=== PATIENT | female | born 1975 | race African-American/Black ===

== ENCOUNTER 2017-09-14 12:25 | Emergency (ER) | payer SELFPAY ==
[2017-09-14 13:21] LABS: ALT (SGPT) 32 U/L (8-55); AST (SGOT) 43 U/L (5-34); Albumin 4.1 g/dL (3.5-5.0); Alkaline Phosphatase 67 U/L (40-150); Anion Gap 14 mmol/L (10-20); BUN (Urea Nitrogen) 8 mg/dL (7.0-18.7); Bilirubin, Total 0.3 mg/dL (0.2-1.2); Calc. Creatinine Clearance 0 mL/min (70-130); Calcium 9.7 mg/dL (7.8-10.44); Carbon Dioxide 21 mmol/L (22-29); Chloride 105 mmol/L (98-107); Estimated GFR-MDRD Greater than 90; Globulin 3.4 g/dL (2.4-3.5); Glucose 155 mg/dL (70-105); Lipase 62 U/L (8-78); Potassium 3.2 mmol/L (3.5-5.1); Protein, Total 7.5 g/dL (6.0-8.3); Sodium 137 mmol/L (136-145)
[2017-09-14 13:49] LABS: #Basophils 0.1 thou/uL (0.0-0.2); #Eosinphils 0.1 thou/uL (0.0-0.7); #Lymphocytes 2.5 thou/uL (1.20-3.40); #Monocytes 0.5 thou/uL (0.11-0.59); #Neutrophils 4.8 thou/uL (1.40-6.50); %Basophils 1.9 % (0.0-1.0); %Eosinophils 0.8 % (0.0-10.0); %Lymphocytes 31.6 % (21.0-51.0); %Neutrophils 59.6 % (42.0-75.0); Hemoglobin 13.5 g/dL (12.0-16.0); Mean Corpuscular Hemoglobin 29.9 pg (27.0-31.0); Mean Corpuscular Volume 93.6 fl (81.0-99.0); Mean Platelet Volume 7.4 fL (7.4-10.4); Platelet Count 311 thou/uL (130-400); RBC Distribution Width 12.3 % (11.5-14.5); Red Blood Cell (RBC) Count 4.49 mill/uL (4.20-5.40)
[2017-09-14 14:41] LABS: Bilirubin Negative (Negative); Blood, Urine Negative (Negative); Clarity CLEAR (Clear); Glucose, Urine (Dipstick) Negative (Negative); Leukocyte Negative (Negative); Nitrite Negative (Negative); Pregnancy Test - Urine (BHCG) Negative (Negative); Protein, Urine (Dipstick) 300 mg/dL (Neg-Trace); Specific Gravity, Urine 1.023 (1.002-1.036); Urobilinogen 0.2 mg/dL (0.2-1.0); pH, Urine 6.5 (5.0-9.0)
[2017-09-14 14:42] LABS: Pregu Control Background? CLEAR/WHITE (CLR/WHITE); Pregu Control Bar Appear? YES (CONTROL BAR); Specific Gravity 1.023 (1.002-1.036)
[2017-09-14 14:43] LABS: Bacteria/HPF None Seen HPF (None Seen); Hyaline Casts/LPF 4-6 HYALINE CAST LPF (0-3 Hyaline); Pathc Cast-AUWi Flag 0.43 (0-2.49); Squamous Epithelial 0-3 HPF (0-3); WBC/HPF 0-3 HPF (0-3)
[2017-09-14 15:01] LABS: RBC/HPF 0-3 HPF (0-3); Renal Epithelial None Seen HPF (0-3); Transitional Epithelial NONE SEEN HPF (0-3)
--- NOTE | 2017-09-14 15:02 | RAD ---
CHEST 1 VIEW: Date: 09/14/17 HISTORY: Dyspnea. Fever. COMPARISON: 07/31/16. FINDINGS: Cardiac silhouette is magnified by projection. Pulmonary vasculature is unremarkable. Mediastinum is midline. No lobar consolidation or evidence of pneumothorax. java j2ee lead leads overlie the chest. IMPRESSION: No active cardiopulmonary abnormalities are demonstrated. POS: [facility]
[2017-09-14] MEDS ORDERED: Sodium Chloride 0.9% 0 ML ONE (15:15)
[2017-09-14] MEDS ORDERED: Promethazine HCl 25 MG/ML VIAL ONE (15:15)
[2017-09-14] MEDS ORDERED: Ketorolac Tromethamine 30 MG/ML VIAL ONE (16:09)
== END 2017-09-14 17:20 | disposition home or self-care (01) ==
LOC: ERS 12:25
DX: A08.4 Viral intestinal infection, unspecified (principal); E78.5 Hyperlipidemia, unspecified; I10 Essential (primary) hypertension; F41.9 Anxiety disorder, unspecified; F20.9 Schizophrenia, unspecified; F17.210 Nicotine dependence, cigarettes, uncomplicated
CPT/HCPCS: 36415; 71045; 80053; 81003; 81015; 81025; 83690; 85025; 96361; 96372; 96374; 96375; J1885; J2550; J7050

== ENCOUNTER 2018-02-07 09:35 | Inpatient (IN) | payer SELFPAY ==
[2018-02-07 10:09] LABS: #Basophils 0.2 thou/uL (0.0-0.2); #Eosinphils 0.1 thou/uL (0.0-0.7); #Lymphocytes 3.8 thou/uL (1.20-3.40); #Neutrophils 3.5 thou/uL (1.40-6.50); %Basophils 1.9 % (0.0-1.0); %Eosinophils 1.7 % (0.0-10.0); %Lymphocytes 44.3 % (21.0-51.0); %Monocytes 11.3 % (0.0-10.0); %Neutrophils 40.8 % (42.0-75.0); Hemoglobin 16.6 g/dL (12.0-16.0); Mean Corpuscular HGB CONC 32.2 g/dL (32.0-36.0); Mean Corpuscular Hemoglobin 30.5 pg (27.0-31.0); Mean Corpuscular Volume 94.8 fL (78.0-98.0); Mean Platelet Volume 8.1 fL (7.4-10.4); Platelet Count 326 thou/uL (130-400); RBC Distribution Width 12.2 % (11.5-14.5); Red Blood Cell (RBC) Count 5.43 mill/uL (4.20-5.40); White Blood Cell (WBC) Count 8.6 thou/uL (4.8-10.8)
[2018-02-07 10:10] LABS: Bilirubin Moderate (Negative); Blood, Urine Negative (Negative); Clarity CLOUDY (Clear); Glucose, Urine (Dipstick) Negative (Negative); Leukocyte Trace (Negative); Nitrite Negative (Negative); Protein, Urine (Dipstick) 300 mg/dL (Neg-Trace); Specific Gravity, Urine 1.031 (1.002-1.036)
[2018-02-07 10:14] LABS: Pathc Cast-AUWi Flag 16.13 (0-2.49)
[2018-02-07 10:16] LABS: BHCG - Serum Negative (NEGATIVE); Pregs Control Background? CLEAR/WHITE (CLR/WHITE); Pregs Control Bar Appear? YES (CONTROL BAR)
[2018-02-07 10:21] LABS: Bacteria/HPF 1+ HPF (None Seen)
[2018-02-07 10:22] LABS: Hyaline Casts/LPF 4-6 HYALINE CAST LPF (0-3 Hyaline); Manual Microscopic Reviewed? No Path Casts Seen; Renal Epithelial None Seen HPF (0-3); Transitional Epithelial NONE SEEN HPF (0-3)
[2018-02-07 10:24] LABS: ALT (SGPT) 50 U/L (8-55); AST (SGOT) 47 U/L (5-34); Albumin 4.1 g/dL (3.5-5.0); Alkaline Phosphatase 65 U/L (40-150); Anion Gap 15 mmol/L (10-20); BUN (Urea Nitrogen) 19 mg/dL (7.0-18.7); Bilirubin, Total 0.7 mg/dL (0.2-1.2); Calc. Creatinine Clearance 0 mL/min (70-130); Calcium 9.5 mg/dL (7.8-10.44); Carbon Dioxide 21 mmol/L (22-29); Chloride 102 mmol/L (98-107); Estimated GFR-MDRD 90; Globulin 4.1 g/dL (2.4-3.5); Glucose 118 mg/dL (70-105); Lipase 17 U/L (8-78); Potassium 3.4 mmol/L (3.5-5.1); Protein, Total 8.2 g/dL (6.0-8.3); Sodium 135 mmol/L (136-145)
--- NOTE | 2018-02-07 11:34 | ULT ---
TRANSABDOMINAL PELVIC ULTRASOUND WITH DOPPLER: DATE: 02/07/18. PROVIDED CLINICAL HISTORY: Pelvic pain and bleeding. FINDINGS: The uterus measures about 7.1 x 4.2 x 5 cm and demonstrates a normal sonographic appearance. Endomet rial thickness is about 4 mm. Right and left ovaries appear sonographically unremarkable. Dominant follicle involving left ovary m easures about 2.1 cm. Color Doppler and spectral analysis of the ovarian waveforms reveals normal fl ow bilaterally. There is no evidence for significant free pelvic fluid. IMPRESSION: No evidence for an acute process. POS: [facility]
[2018-02-07] MEDS ORDERED: hydrALAZINE 20 MG/ML VIAL ONE (12:25)
[2018-02-07] MEDS ORDERED: Promethazine HCl 25 MG/ML VIAL ONE (13:36)
--- NOTE | 2018-02-07 13:50 | CT ---
CT OF THE ABDOMEN AND PELVIS WITH IV CONTRAST: DATE: 02/07/18. Provided CLINICAL HISTORY: Vaginal bleeding, weakness, and abdominal pain. FINDINGS: No comparisons. The visualized lung bases are free of significant opacity. The liver, spleen, pancreas, kidneys, and adrenal glands demonstrate an unremarkable CT appearance. There is no bowel dilatation, inflammatory fat stranding, free fluid, or free air apparent. The uter ine myometrium appears diffusely hypodense. There is increased enhancement of the uterine endometriu m region. There are several small foci of gas present within the urinary bladder. The osseous structures demonstrate no concerning lytic or blastic lesions. IMPRESSION: 1. Abnormal enhancement pattern of the uterus, nonspecific. Correlate with concerns for endometriti s/pelvic inflammatory disease. 2. Foci of gas within the urinary bladder. This could reflect recent instrumentation. Fistula form ation with the urinary bladder cannot be excluded. POS: [facility]
[2018-02-07 14:11] LABS: Amphetamine Not Detected (NotDetected); Barbiturates Screen Not Detected (NotDetected); Benzodiazepine Screen Not Detected (NotDetected); Cocaine Metabolite Screen Not Detected (NotDetected); Medtox Control Line Valid? VALID (VALID); Medtox Reader # READER 4; Methadone Not Detected (NotDetected); Methamphetamine Not Detected (NotDetected); Opiate Screen Not Detected (NotDetected); Oxycodone Screen Not Detected (NotDetected); Phencyclidine (PCP) Not Detected (NotDetected); THC/Cannabinoid Screen Detected (NotDetected); Tricyclic Screen Not Detected (NotDetected)
[2018-02-07] MEDS ORDERED: Piperacillin/Tazobactam 4.5 GM VIAL ONE (14:12)
[2018-02-07] MEDS ORDERED: ISOVUE-370 76%-LOCM 1 ML ONE (14:41)
[2018-02-07] MEDS ORDERED: Azithromycin 250 MG TAB ONE (14:48)
[2018-02-07] MEDS ORDERED: diphenhydrAMINE 25 MG CAP ONE (15:26)
[2018-02-07] MEDS ORDERED: Metoclopramide HCl 10 MG/2 ML VIAL ONE (15:26)
[2018-02-07] MEDS ORDERED: diphenhydrAMINE 50 MG/ML VIAL ONE (15:27)
[2018-02-07] MEDS ORDERED: Ondansetron HCl/PF 4 MG/2 ML Vial IVP PRN (16:25)
[2018-02-07] MEDS ORDERED: Ondansetron ODT 4 MG TAB PO PRN (16:25)
[2018-02-07] MEDS ORDERED: Acetaminophen 325 MG TAB PO PRN (16:25)
[2018-02-07] MEDS ORDERED: hydrALAZINE 20 MG/ML VIAL SLOW IVP PRN (16:28)
[2018-02-07] MEDS ORDERED: Promethazine HCl 25 MG/ML VIAL IM/IV PRN (16:38)
[2018-02-07] MEDS ORDERED: Amlodipine 5 MG TAB PO SCH (16:45)
[2018-02-07 16:58] VITALS: BMI 18.8
[2018-02-07] MEDS ORDERED: GoLYTELY 4,000 ml Bottle PO SCH (18:00)
[2018-02-07] MEDS: Sodium Chloride 0.45% 1,000 ML IV SCH (18:14)
--- NOTE | 2018-02-07 18:16 | HP ---
CHIEF COMPLAINT: Abdominal pain, vomiting. HISTORY OF PRESENT ILLNESS: This patient is a 42-year-old female who presented via the emergency dep artment. Patient's history to the emergency department providers is significantly different than the history provided to me. However, the patient reports that she was in her usual state of health unti l about a week ago. At that time, she developed some abdominal distention and then on Thursday, 5 day s ago she started experiencing nausea, vomiting, and diarrhea. At that time, her abdominal distentio n decompressed. She reports she has continued to have vomiting since that time and that continues no w. She says she has been able to keep nothing down since Thursday. She does report she actually feel s hungry presently, although she has been vomiting while in the emergency room. She reports she has not had a bowel movement since Thursday night. She describes her abdominal pain as dull and achy most of the time with occasional shooting pain. It is intermittent and it is generalized over the abdome n. She has had no associated fevers or chills. She reports that this is the fourth time something l stacy this has happened. ER records indicate she was here back in August with the nausea, vomiting, and diarrhea. She was also here on 08/08 with vomiting and chest pain in 12/08 for abdominal pain and p resumably some vaginal bleeding. The patient also reports that she had a normal period about 3 weeks ago. She has not had no bleeding since that time; however, she did have one episode on Thursday, whic h was two days ago in which she felt some pressure and thought it might be a bowel movement, but gurwinder clayton passed a clot of blood and she is unsure if it came rectally or vaginally. Today, in the [facility] room, the patient apparently also had some blood in her urine, but states that she has voided s miguelito then and it was normal and she had noted no blood prior to that time. Of note, the patient repo rted to the emergency room provider that she had been having significant vaginal bleeding and was req uiring pad every 6 hours. She denied nausea, vomiting or diarrhea to the ER provider. REVIEW OF SYSTEMS: The patient reports she has had some dizziness since Thursday. she does report los n in her chest. She describes it as a sharp pain. It is on the left side and occasionally in the mi ddle. It seems to be more severe when it is in the middle, last about 10 minutes and resolves sponta neously. It occurs at random times. She also has a chronic sensation of shortness of breath. This is continuous. It is not related to activity or exercise. She has had no specific musculoskeletal, integumentary or psych symptoms. She does report some generalized weakness. Otherwise, 10 system re view negative except for those things mentioned in history of present illness. PAST MEDICAL HISTORY: The patient reports she has a history of "borderline" hypertension, but has ne claudine been on medications. She has also got a chronic hepatitis C. PAST SURGICAL HISTORY: She has the above-mentioned several episodes of symptoms similar to this. FAMILY HISTORY: Notable for hypertension and diabetes. She is unsure of her father's history. She only recently met him. SOCIAL HISTORY: Patient smokes about 7 cigarettes per day. She denies alcohol, but does smoke marij uana. She is . Her would be her surrogate decision maker and she is FULL CODE. ALLERGIES: ONDANSETRON. MEDICATIONS: None. PHYSICAL EXAMINATION: VITAL SIGNS: Blood pressure has ranged in the emergency department from 131/88 up to 201/112. GENERAL APPEARANCE: Age appropriate female. She is in no distress. She is awake, alert, oriented, cooperative, pleasant. HEENT: PERRL. No OP lesions. [place], moist oral mucosa. She does have some puffiness in the parotid gland areas bilaterally (this apparently occurred while she was receiving some antibiotics and here in the emergency department). This area is nontender. NECK: Supple and symmetric without lymphadenopathy, JVD, or bruit. CARDIOVASCULAR: Regular rate and rhythm without murmurs, gallops or rubs. CHEST: Lungs are clear to auscultation bilaterally with good chest wall expansion and air exchange. ABDOMEN: Soft, flat, nontender, nondistended, positive bowel sounds, no masses, no organomegaly. EXTREMITIES: Warm and dry without edema. LABORATORY DATA: White blood cell count 8.6, hemoglobin 16.6, platelets 326. Sodium 135, potassium 3.4, chloride 102, CO2 of 21, BUN 19, creatinine 0.85, glucose 118, AST 47, ALT 50. Serum test negative. Lipase 17. Urinalysis shows some protein, trace ketones, moderate bilirubin, trace l eukocyte esterase, 4-6 red cells, 4-6 white cells, 7-10 squamous epithelium, 1+ bacteria and 4-6 hyal ine casts. Drug screen negative except for cannabinoids. Stool for occult blood positive. IMAGING: CT of the abdomen and pelvis reveal abnormal enhancement pattern of the uterus which is non specific. It is described as being diffusely hypodense with increased enhancement of the uterine end ometrium. There is some concern for the possibility of endometritis or pelvic inflammatory disease. There is also some gas in the bladder (it was noted that the patient did in fact have a straight cat h performed prior to the CT scan). Pelvic ultrasound showed no evidence of an acute process. ASSESSMENT AND PLAN: 1. Nausea and vomiting. The patient has had several episodes of vomiting while she is in the emerge ncy department today. She has had this reported since Thursday. We will give her some fluids and p.r .n. Phenergan as she is allergic to ONDANSETRON. GI has been consulted. 2. Abdominal distention with recurrent episodes of nausea, vomiting, diarrhea. Etiology is unclear. Possibilities do include a reaction to the marijuana with possible cyclical vomiting syndrome. I d iscussed the case with GI. 3. Polycythemia, likely hemoconcentration. We will give some IV fluids. 4. Heme-positive stools, again discussed with GI. They will be consulting on the patient. 5. Possible vaginal bleeding. The patient has intact uterus. She had passed some blood from her pe lvic area somewhere and she is not sure if it was GI or vaginal; however, given the subtle changes on her CT scan, we will ask Gynecology to take a look at her as well. 6. Chest pain. This patient has reported episodes of chest pain going back 2014, at which ti me she had a stress test which was negative. It is unclear what the etiology of this may be, but con cerning for her blood pressure, which seems to be very labile. 7. Elevated blood pressure with some labile nature to the numbers. We will start her on amlodipine. Records indicate that she may have been on this in the past. We will also give her p.r.n. hydralaz ine. 8. Hematuria, it is unclear if the patient actually had any hematuria, micro does not bear that out on her urinalysis, although she did have what looks like some hyperbilirubinuria. Her serum bilirubi n is normal. 9. History of hepatitis C, no acute intervention indicated.
--- NOTE | 2018-02-07 18:21 | CON ---
DATE OF CONSULTATION: 02/07/2018 GASTROINTESTINAL INPATIENT CONSULTATION NOTE REQUESTING PHYSICIAN: Dr. Jacobsen. REASON FOR CONSULTATION: Rectal bleeding. HISTORY OF PRESENT ILLNESS: Mary Salinas is a 42-year-old -[place] woman. She has been se en in the past by my GI colleague, Dr. Yosi Werner. This was about 10 years ago for chronic hepatitis C. She had had a liver biopsy in 2005 which showed only grade I activity and stage 0 fibrosis. She had planned to treat her with interferon and ribavirin, but the patient never followed through on at. She has no ongoing issues with her liver or any findings suggestive of liver dysfunction. She i s being admitted from the emergency department with multiple abdominal complaints this evening. Hist ory is a bit difficult as the patient is unclear on the details and evidently the story is a differen t each time and was told to different providers. From what I can gather for about the past week, she has been having some bloating discomfort in the abdomen associated with some constipation. She has had only 1 bowel movement over the past week which was a large loose stools about 5 days ago. Around that time, she also started having worsening nausea and has had multiple episodes of emesis over the past 5 days. The emesis has been nonbloody. Then, she says that a couple of days ago, she started having bleeding from her rectum. She thinks this is coming from either the rectum or the vaginal are a, but she cannot tell. Notably, this will sometimes drip even though she has not really had any bow el movements over this time. She is not really having any anal pain. Upon presentation, she was see n by Dr. Jacobsen and has had a pelvic ultrasound, vaginal exam and abdominal CT scan. Evidently, vag inal exam was unremarkable for any source of bleeding. Pelvic ultrasound was unremarkable. An abdom inal CT scan was essentially unremarkable as well, just showing an abnormal enhancement pattern of th e uterus which is nonspecific, possibly consistent with pelvic inflammatory disease. REVIEW OF SYSTEMS: Full review of systems including constitutional, head, eyes, ears, nose, throat, GI, , cardiovascular, respiratory, musculoskeletal, and neurologic systems is negative except as no daniel in HPI. PAST MEDICAL HISTORY: 1. Chronic hepatitis C, genotype, untreated. 2. Bipolar disorder. ALLERGIES: ZOFRAN causes hives. OUTPATIENT MEDICATIONS: None. SOCIAL HISTORY: The patient does smoke tobacco daily. She will smoke marijuana every once in a whil e. No alcohol use. FAMILY HISTORY: Negative for known GI malignancy. PHYSICAL EXAMINATION: VITAL SIGNS: Blood pressure 175/105, pulse 94, temperature 98.2, 99% oxygen saturation on room air. GENERAL: A 42-year-old -[place] woman lying in bed comfortably in no distress. SKIN: No jaundice, no rashes were palpable. EYES: No scleral icterus. Extraocular movements intact. ENT: Mucous membranes moist, no oral lesions. LYMPH: No submandibular, supraclavicular lymphadenopathy. THYROID: Nontender to palpation. HEART: Regular rate and rhythm. LUNGS: Clear to auscultation bilaterally. ABDOMEN: Nondistended. Bowel sounds are present. The abdomen is soft. There is tenderness to palp ation in the lower abdomen and periumbilical area, less so in the epigastrium. No guarding, rebound tenderness. EXTREMITIES: No peripheral edema. VESSELS: Radial pulses 2+ bilaterally. NEUROLOGICAL: Cranial nerves II-XII intact bilaterally. No focal deficits. LABORATORY STUDIES: FOBT was checked in the emergency department and was positive. Hemoglobin 16.6, WBC 8.6, platelets 326. Sodium 135, potassium 3.4, BUN 19, creatinine 0.85. Lipase 17, total bilir ubin 0.7, alkaline phosphatase 65, AST 47, ALT 50. Serum test negative. Urinalysis shows 4-6 wbc's. Urine drug screen is positive for cannabinoids. IMAGING STUDIES: Pelvic ultrasound shows no evidence for any acute process. Uterus demonstrated a n ormal sonographic appearance. CT of the abdomen and pelvis demonstrated abnormal enhancement of the uterus which is nonspecific, possibly consistent with pelvic inflammatory disease. There is a focus of gas in the urinary bladder, but my understanding is the patient had had a straight catheterization just prior to this and this could account for that. ASSESSMENT AND PLAN: 1. Rectal bleeding, new over the past couple of days. 2. Nausea and vomiting, the past 5 days. 3. Generalized abdominal pain over the past week. It is a little bit unclear exactly where this ble eding is coming from, whether from the vagina or the rectum. Evidently, a vaginal exam was unremarka ble, though. When combined with the other abdominal symptoms of vomiting and generalized abdominal p ain, and otherwise essentially negative imaging and lab workup, concern is raised for primary GI path ology including peptic ulcer disease or inflammatory bowel disease. It would be reasonable to invest igate further with EGD and colonoscopy. The patient desires to proceed. We will plan to administer bowel preparation this evening and perform EGD and colonoscopy tomorrow morning for further investiga tion. Thank you for the consultation. Please call any time with questions or concerns.
--- NOTE | 2018-02-07 18:56 | CON ---
DATE OF CONSULTATION: 02/07/2018 CONSULTING PHYSICIAN: Dheeraj Marie MD REASON FOR CONSULTATION: "Abnormal enhancement of uterus" on admitting CT. HISTORY OF PRESENT ILLNESS: Ms. Salinas is a 42-year-old, black, G3, P3 with a reported last menstrual period three weeks ago, who presents complaining of 1- week history of night sweats, nausea, vomiting, and intermittent abdominal pain. She states that her cycles have been regular over the last several months. PAST OBSTETRICAL HISTORY: Includes 2 vaginal deliveries at term and one section. PAST MEDICAL HISTORY: She reports hepatitis C. PAST SURGICAL HISTORY: , appendectomy, and tonsillectomy. CURRENT MEDICATIONS: None. ALLERGIES: Include ZOFRAN and ZITHROMAX, for which she reports facial swelling. SOCIAL HISTORY: She smokes a half a package per day. She denies alcohol use. She does smoke occasional marijuana. FAMILY HISTORY: Denies breast or pelvic malignancy. REVIEW OF SYSTEMS: Positive for nausea, vomiting, night sweats, abdominal pain as above. Denies recent history of irregular cycles. PHYSICAL EXAMINATION: VITAL SIGNS: Most recent vital signs, blood pressure 162/94, pulse 86, temperature 98.7, 90% O2 sat on room air. GENERAL: She is pleasant. She is responsive to questioning. ABDOMEN: Thin and flat. There is no guarding or rebound. PELVIC: Externally, there are no lesions. Speculum exam of the vagina shows what looks like menstrual blood in the vault. There are no gross lesions of her cervix. On bimanual exam, although she is uncomfortable with the exam, she denies cervical motion tenderness or tenderness to deep palpation in either adnexa. LABORATORY DATA: CBC on admission shows a white count of 8.6, hemoglobin of 16.6, hematocrit of 51.5, and a platelet count of 326. Her chemistries show a sodium of 135, a potassium of 3.4, a BUN of 19, and a creatinine of 0.85. Total bilirubin is 0.7, AST is 47, ALT is 50, lipase is 17. Serum test is negative. Urine toxicology is positive for cannabis. No other drugs are detected. IMAGING: CT of the abdomen shows normal liver, spleen, pancreas, kidneys, and adrenal glands. There is what is described as an abnormal enhancement pattern over the uterus to be correlated with concerns of pelvic inflammatory disease. There is also a small foci of gas within the urinary bladder, which may represent recent catheterization. A pelvic ultrasound was also done. This demonstrated a 7.1 x 4.2 x 5 cm uterus with an endometrial stripe of 4 mm. Right and left ovaries are unremarkable. There is a dominant follicle in the left ovary measuring 2.1 cm. There is no free pelvic fluid. ASSESSMENT: No evidence of acute pelvic inflammatory disease on clinical exam at this time. PLAN: At the time of my exam tonight, I have obtained GC and chlamydia cultures as well as a vaginitis panel. We will follow these and treat as indicated. AGUSTIN
[2018-02-07] MEDS: Famotidine/PF 20 mg/2ml Vial SLOW IVP SCH (20:28)
[2018-02-08] MEDS: Sodium Chloride 0.45% 1,000 ML IV SCH ×2 (02:20→08:29)
[2018-02-08 05:52] LABS: ALT (SGPT) 38 U/L (8-55); AST (SGOT) 40 U/L (5-34); Albumin 3.5 g/dL (3.5-5.0); Alkaline Phosphatase 52 U/L (40-150); Anion Gap 11 mmol/L (10-20); BUN (Urea Nitrogen) Less than 4 mg/dL (7.0-18.7); Bilirubin, Total 0.7 mg/dL (0.2-1.2); Calc. Creatinine Clearance 85 mL/min (70-130); Calcium 8.5 mg/dL (7.8-10.44); Carbon Dioxide 23 mmol/L (22-29); Chloride 104 mmol/L (98-107); Estimated GFR-MDRD Greater than 90; Globulin 3.2 g/dL (2.4-3.5); Glucose 77 mg/dL (70-105); Potassium 3.6 mmol/L (3.5-5.1); Protein, Total 6.7 g/dL (6.0-8.3); Sodium 134 mmol/L (136-145)
[2018-02-08 05:56] LABS: Eosinophils 3 % (0-10); Hemoglobin 13.8 g/dL (12.0-16.0); Lymphocytes 42 % (21-51); MDiff Complete? YES; Mean Corpuscular HGB CONC 31.8 g/dL (32.0-36.0); Mean Corpuscular Hemoglobin 29.8 pg (27.0-31.0); Mean Corpuscular Volume 93.8 fL (78.0-98.0); Mean Platelet Volume 7.9 fL (7.4-10.4); Monocytes 10 % (0-10); Neutrophil 41 % (42-75); Platelet Count 278 thou/uL (130-400); RBC Distribution Width 11.9 % (11.5-14.5); Reactive Lymphocytes 4 % (0-10); Red Blood Cell (RBC) Count 4.61 mill/uL (4.20-5.40); White Blood Cell (WBC) Count 8.3 thou/uL (4.8-10.8)
[2018-02-08] MEDS: Famotidine/PF 20 mg/2ml Vial SLOW IVP SCH (08:25)
[2018-02-08] MEDS ORDERED: Promethazine HCl 25 MG/ML VIAL SLOW IVP PRN (11:14)
[2018-02-08] MEDS ORDERED: Promethazine HCl 25 MG/ML VIAL IM PRN (11:14)
[2018-02-08] MEDS ORDERED: PROPOFOL 200 MG/20 ML VIAL ONE (11:31)
--- NOTE | 2018-02-08 11:41 | OP ---
DATE OF PROCEDURE: 02/08/2018 SURGEON: Kaz Woodson M.D. SUPERVISOR [employer] SURGEON: None. PROCEDURES: 1. Esophagogastroduodenoscopy, diagnostic. 2. Colonoscopy, diagnostic. INDICATION: 1. Rectal bleeding, versus vaginal bleeding. 2. Nausea and vomiting. 3. Generalized abdominal pain. MEDICATIONS: See anesthesia record. FINDINGS: After discussion of the risks, benefits and alternatives of the procedure, informed consen t was obtained and witnessed. Pre-endoscopic cardiopulmonary examination was satisfactory. Timeout was performed before sedation was achieved. Sedation was achieved with anesthesia assistance in the endoscopy unit. A Pentax adult upper endoscope was placed into the oropharynx and passed through the cricopharyngeus under direct visualization. The esophageal mucosa appeared normal throughout with a normal-appearing Z-line. The endoscope was advanced into the stomach. Forward and retroflexed view s of the entire gastric mucosa were obtained. The gastric mucosa appeared normal throughout. The en doscope was advanced beyond the pylorus and into the first and second portions of the duodenum, which also appeared normal. The upper endoscope was completely withdrawn and the patient was repositioned . Digital rectal exam was performed which was unremarkable. A Pentax adult colonoscope was inserted in to the anus and passed forward to the cecum in the usual fashion. The cecal base was identified by t he appendiceal orifice as well as the ileocecal valve. The terminal ileum was intubated and the ilea l mucosa appeared normal. The colonoscope was then slowly withdrawn in a gradual and circumferential manner with careful examination of the entire colonic mucosa. The quality of the prep was good. Th e colonic mucosa appeared normal throughout. There was no evidence of any polyps, mass lesions or mu cosal abnormalities. Retroflexion in the rectum demonstrated some internal hemorrhoids which are non bleeding. The colonoscope was then completely withdrawn and the patient allowed to recover. The pat ient tolerated the procedure well. There were no immediate post-procedure complications. IMPRESSION: 1. Normal esophagogastroduodenoscopy. 2. Internal hemorrhoids. 3. Otherwise normal colonoscopy to the terminal ileum. RECOMMENDATIONS: 1. The patient can take a stool softener such as docusate 100 mg by mouth twice daily as needed. 2. Advance diet. 3. GI will sign off at this time. She can follow up in the outpatient setting with Dr. Werner, whom s he has seen before. Please call back if needed.
[2018-02-08 13:29] VITALS: BP 128/78; TEMP 97.8
--- NOTE | 2018-02-09 13:47 | DIS ---
DATE OF ADMISSION: 02/07/2018 DATE OF DISCHARGE: 02/08/2018 DISCHARGE DIAGNOSES: 1. Nausea and vomiting. 2. Abdominal distention. 3. Polycythemia. 4. Heme positive stools. 5. Chest pain. 6. Elevated blood pressure. 7. Hematuria. 8. History of hepatitis. HISTORY: Patient is a 42-year-old female who has been admitted several times previously with similar symptoms. She presented to the emergency department with several days of nausea, vomiting, some ass ociated mild abdominal bloating and chest discomfort. She was noted to be significantly hypertensive in the emergency department, received IV hydralazine. The patient had reported different stories to different providers, but indicated to the ER provider that she was having frequent vaginal bleeding; however, she reported to me that she had only had one episode of passing a clot and she was not sure if it was vaginal or rectal. She did have a positive Hemoccult. Her initial labs noted of hemoglobin of 16.6. Sodium 135, potassium 3.4, BUN 19, creatinine 0.85, T 47, lipase was 17. Urinalysis showed some bilirubin, trace leukocyte esterase, 4-6 red cells, 4-6 white cells. Urine drug screen was positive for cannabinoids and the patient had admitted to smoking cigarettes as well as marijuana. The patient was admitted to the hospital. She was hydrated and tr eated p.r.n. for nausea and vomiting. She was seen in consultation by GI who took the patient for en doscopy with no findings. She had some internal hemorrhoids on her colonoscopy, but otherwise upper and lower endoscopies were unremarkable. She was seen in consultation by Gynecology as the patient h ad an initial CT scan, which showed some concern for possible inflammatory issues of the cervix or th e uterus; however, they felt like there were no significant findings. A vaginitis panel was only pos itive for Gardnerella. Patient was ultimately feeling substantially better. The following day, she had no further nausea, vomiting. She was able to eat a regular meal. She was walking the hallways. She has remained afebrile and her blood pressure was vastly improved and she was eager to go home. PHYSICAL EXAMINATION: VITAL SIGNS: On the day of discharge, temperature 97.8, pulse 68, BP 128/78, respirations 16, O2 sat s 99%. GENERAL APPEARANCE: Age appropriate female in no distress. Awake, alert, and oriented. HEART: Regular rate and rhythm without murmurs. LUNGS: Clear bilaterally. ABDOMEN: Soft, nontender, nondistended. EXTREMITIES: Warm and dry. White count remained at 8.3, hemoglobin was down to 13.8. Sodium 134, potassium 3.6, BUN improved to less than 0.4, AST 40. DISPOSITION: The patient is discharged to home. She is to have a regular diet and activity level. She will have p.r.n. Phenergan. She is to follow up with Dr. Woodson. The patient does not have a PCP , recommended she follow up with the [facility]. She is also to follow up with Dr. Dheeraj xavier. She will return to the emergency department should she have any problems prior to that time.
[2018-02-10 00:07] LABS: Chlamydia by PCR Not Detected (NotDetected); GC by PCR Not Detected (NotDetected)
[2018-02-10 00:07] LABS: Chlamydia by PCR Not Detected (NotDetected); GC by PCR Not Detected (NotDetected)
--- NOTE | 2018-02-13 11:19 | EKG ---
Test Reason : TACHYCARDIA Blood Pressure : / mmHG Vent. Rate : 120 BPM Atrial Rate : 120 BPM P-R Int : 128 ms QRS Dur : 066 ms QT Int : 342 ms P-R-T Axes : 077 078 042 degrees QTc Int : 483 ms Sinus tachycardia Right atrial enlargement Nonspecific ST and T wave abnormality Abnormal ECG Confirmed by JATINDER Walden, RIKKI ([id number]), editorial specialist ENEDINA CRAVEN ([id number]) on 02/13/2018 11:18:45 AM Referred By: JATINDER Confirmed By:RIKKI TOBIAS M.D.
== END 2018-02-08 14:31 | disposition home or self-care (01) | DRG 392 ==
LOC: ERS 09:35 → T4-A 16:54
PROVIDERS: ADMIT Internal Medicine; ATTEND Internal Medicine
PROC: 0DJ08ZZ Inspection of Upper Intestinal Tract, Via Natural or Artificial Opening Endoscopic (ICD-10-PCS; principal; 2018-02-08)
PROC: 0DJD8ZZ Inspection of Lower Intestinal Tract, Via Natural or Artificial Opening Endoscopic (ICD-10-PCS; 2018-02-08)
DX: R11.2 Nausea with vomiting, unspecified (principal); K73.9 Chronic hepatitis, unspecified; F17.210 Nicotine dependence, cigarettes, uncomplicated; R10.9 Unspecified abdominal pain; D75.1 Secondary polycythemia; K64.8 Other hemorrhoids; F31.9 Bipolar disorder, unspecified
CPT/HCPCS: 36415; 51701; 74177; 76856; 80053; 80306; 81003; 81015; 82274; 83690; 84703; 85025; 86850; 86900; 86901; 87480; 87491; 87510; 87591; 87660; 93005; 93976; 96361; 96365; 96375; A4353; J0360; J1200; J2543; J2550; J2704; J2765; S0028

== ENCOUNTER 2019-12-16 10:27 | Emergency (ER) | payer SELFPAY ==
[2019-12-16] MEDS ORDERED: Aspirin Chewable 81 MG TAB ONE (12:21)
[2019-12-16 12:52] LABS: #Basophils 0.2 thou/uL (0.0-0.2); #Lymphocytes 3.9 thou/uL (1.20-3.40); #Monocytes 1.3 thou/uL (0.11-0.59); %Basophils 1.5 % (0.0-1.0); %Eosinophils 0.2 % (0.0-10.0); %Lymphocytes 37.3 % (21.0-51.0); %Monocytes 12.7 % (0.0-10.0); %Neutrophils 48.3 % (42.0-75.0); Hemoglobin 17.2 g/dL (12.0-16.0); Mean Corpuscular HGB CONC 32.4 g/dL (32.0-36.0); Mean Corpuscular Hemoglobin 30.5 pg (27.0-31.0); Mean Platelet Volume 9.1 fL (7.4-10.4); Platelet Count 299 thou/uL (130-400); RBC Distribution Width 12.5 % (11.5-14.5); Red Blood Cell (RBC) Count 5.66 mill/uL (4.20-5.40); White Blood Cell (WBC) Count 10.4 thou/uL (4.8-10.8)
[2019-12-16 13:10] LABS: ALT (SGPT) 33 U/L (8-55); AST (SGOT) 38 U/L (5-34); Albumin 4.5 g/dL (3.5-5.0); Alkaline Phosphatase 70 U/L (40-110); Anion Gap 15 mmol/L (10-20); BUN (Urea Nitrogen) 12 mg/dL (7.0-18.7); Bilirubin, Total 0.6 mg/dL (0.2-1.2); Calc. Creatinine Clearance 0 mL/min (70-130); Carbon Dioxide 28 mmol/L (22-29); Chloride 99 mmol/L (98-107); Estimated GFR-MDRD 86; Globulin 4.2 g/dL (2.4-3.5); Glucose 99 mg/dL (70-105); Potassium 3.4 mmol/L (3.5-5.1); Protein, Total 8.7 g/dL (6.0-8.3); Sodium 139 mmol/L (136-145)
== END 2019-12-16 14:05 | disposition home or self-care (01) ==
LOC: ERS 10:27
DX: I10 Essential (primary) hypertension (principal); R07.9 Chest pain, unspecified; R11.0 Nausea; E78.5 Hyperlipidemia, unspecified; F41.9 Anxiety disorder, unspecified; F20.9 Schizophrenia, unspecified; F17.210 Nicotine dependence, cigarettes, uncomplicated
CPT/HCPCS: 36415; 80053; 84484; 85025; 93005; 96360

== ENCOUNTER 2021-05-06 17:34 | Emergency (ER) | payer SELFPAY ==
[2021-05-06] MEDS ORDERED: Promethazine HCl 25 MG/ML VIAL ONE (18:18)
[2021-05-06 18:24] LABS: #Basophils 0.1 thou/uL (0.0-0.2); #Lymphocytes 3.1 thou/uL (1.20-3.40); #Monocytes 1.1 thou/uL (0.11-0.59); #Neutrophils 6.5 thou/uL (1.40-6.50); %Basophils 1.2 % (0.0-1.0); %Eosinophils 0.3 % (0.0-10.0); %Lymphocytes 28.3 % (21.0-51.0); %Monocytes 10.4 % (0.0-10.0); %Neutrophils 59.9 % (42.0-75.0); Hemoglobin 16.9 g/dL (12.0-16.0); Mean Corpuscular HGB CONC 31.4 g/dL (32.0-36.0); Mean Corpuscular Hemoglobin 29.1 pg (27.0-31.0); Mean Corpuscular Volume 92.7 fL (78.0-98.0); Mean Platelet Volume 7.5 fL (7.4-10.4); Platelet Count 313 thou/uL (130-400); RBC Distribution Width 12.1 % (11.5-14.5); Red Blood Cell (RBC) Count 5.79 mill/uL (4.20-5.40); White Blood Cell (WBC) Count 10.8 thou/uL (4.8-10.8)
[2021-05-06 18:53] LABS: ALT (SGPT) 43 U/L (8-55); AST (SGOT) 46 U/L (5-34); Albumin 4.7 g/dL (3.5-5.0); Alkaline Phosphatase 63 U/L (40-110); Anion Gap 17 mmol/L (10-20); BUN (Urea Nitrogen) 22 mg/dL (7.0-18.7); Bilirubin, Total 0.9 mg/dL (0.2-1.2); CK (CPK) 303 U/L (29-168); Calc. Creatinine Clearance 0 mL/min (70-130); Calcium 10.1 mg/dL (7.8-10.44); Carbon Dioxide 29 mmol/L (22-29); Chloride 99 mmol/L (98-107); Globulin 4.6 g/dL (2.4-3.5); Glucose 132 mg/dL (70-105); Lipase 32 U/L (8-78); Potassium 3.8 mmol/L (3.5-5.1); Protein, Total 9.3 g/dL (6.0-8.3); Sodium 141 mmol/L (136-145)
== END 2021-05-06 20:05 | disposition home or self-care (01) ==
LOC: ERS 17:34
DX: R11.2 Nausea with vomiting, unspecified (principal); I10 Essential (primary) hypertension; E78.5 Hyperlipidemia, unspecified; E78.00 Pure hypercholesterolemia, unspecified; F17.210 Nicotine dependence, cigarettes, uncomplicated
CPT/HCPCS: 80053; 82550; 83690; 83735; 84484; 85025; 96374; J2550

== ENCOUNTER 2022-02-16 09:53 | Emergency (ER) | payer SELFPAY ==
[2022-02-16] MEDS ORDERED: diphenhydrAMINE 50 MG/ML VIAL ONE (10:24)
[2022-02-16] MEDS ORDERED: Haloperidol Lactate 5 MG/ML VIAL ONE (10:24)
[2022-02-16] MEDS ORDERED: Metoclopramide HCl 10 MG/2 ML VIAL ONE (10:24)
[2022-02-16 10:43] LABS: #Basophils 0.1 thou/uL (0.0-0.2); #Lymphocytes 3.6 thou/uL (1.20-3.40); #Monocytes 1.1 thou/uL (0.11-0.59); #Neutrophils 5.9 thou/uL (1.40-6.50); %Basophils 1.1 % (0.0-1.0); %Eosinophils 0.2 % (0.0-10.0); %Lymphocytes 33.9 % (21.0-51.0); %Monocytes 10.3 % (0.0-10.0); %Neutrophils 54.6 % (42.0-75.0); Hemoglobin 16.3 g/dL (12.0-16.0); Mean Corpuscular HGB CONC 31.8 g/dL (32.0-36.0); Mean Corpuscular Volume 94.2 fL (78.0-98.0); Mean Platelet Volume 7.6 fL (7.4-10.4); Platelet Count 335 thou/uL (130-400); RBC Distribution Width 12.7 % (11.5-14.5); Red Blood Cell (RBC) Count 5.44 mill/uL (4.20-5.40); White Blood Cell (WBC) Count 10.8 thou/uL (4.8-10.8)
[2022-02-16 10:53] LABS: BHCG - Serum Negative (NEGATIVE); Pregs Control Background? CLEAR/WHITE (CLR/WHITE); Pregs Control Bar Appear? YES (CONTROL BAR)
[2022-02-16 11:05] LABS: ALT (SGPT) 42 U/L (8-55); AST (SGOT) 48 U/L (5-34); Albumin 4.5 g/dL (3.5-5.0); Alkaline Phosphatase 69 U/L (40-110); Anion Gap 16 mmol/L (10-20); BUN (Urea Nitrogen) 16 mg/dL (7.0-18.7); Bilirubin, Total 0.9 mg/dL (0.2-1.2); CK (CPK) 233 U/L (29-168); Calc. Creatinine Clearance 0 mL/min (70-130); Calcium 10.1 mg/dL (7.8-10.44); Carbon Dioxide 29 mmol/L (22-29); Chloride 99 mmol/L (98-107); Estimated GFR 79; Globulin 4.4 g/dL (2.4-3.5); Glucose 115 mg/dL (70-105); Lipase 12 U/L (8-78); Potassium 3.3 mmol/L (3.5-5.1); Protein, Total 8.9 g/dL (6.0-8.3); Sodium 141 mmol/L (136-145)
[2022-02-16] MEDS ORDERED: Potassium Chloride 20 MEQ TAB ONE (11:25)
== END 2022-02-16 12:05 | disposition home or self-care (01) ==
LOC: ERS 09:53
DX: R11.10 Vomiting, unspecified (principal); F12.10 Cannabis abuse, uncomplicated; E87.6 Hypokalemia
CPT/HCPCS: 36415; 80053; 82550; 83690; 84703; 85025; 96361; 96374; 96375; J1200; J1630; J2765

== ENCOUNTER 2022-07-30 13:17 | Emergency (ER) | payer SELFPAY ==
[2022-07-30 14:11] LABS: #Basophils 0.1 thou/uL (0.0-0.2); #Lymphocytes 3.5 thou/uL (1.20-3.40); #Monocytes 0.8 thou/uL (0.11-0.59); #Neutrophils 3.3 thou/uL (1.40-6.50); %Basophils 1.7 % (0.0-1.0); %Eosinophils 0.5 % (0.0-10.0); %Lymphocytes 45.2 % (21.0-51.0); %Monocytes 10.8 % (0.0-10.0); %Neutrophils 41.8 % (42.0-75.0); Hemoglobin 16.6 g/dL (12.0-16.0); Mean Corpuscular HGB CONC 33.6 g/dL (32.0-36.0); Mean Corpuscular Hemoglobin 31.2 pg (27.0-31.0); Mean Corpuscular Volume 92.8 fl (78.0-98.0); Mean Platelet Volume 7.8 fL (7.4-10.4); Platelet Count 307 10x3/uL (130-400); RBC Distribution Width 12.6 % (11.5-14.5); Red Blood Cell (RBC) Count 5.33 mill/uL (4.20-5.40); White Blood Cell (WBC) Count 7.8 10x3/uL (4.8-10.8)
[2022-07-30 14:42] LABS: ALT (SGPT) 44 U/L (8-55); AST (SGOT) 53 U/L (5-34); Albumin 4.2 g/dL (3.5-5.0); Alkaline Phosphatase 58 U/L (40-110); Anion Gap 14 mmol/L (10-20); BUN (Urea Nitrogen) 10 mg/dL (7.0-18.7); Bilirubin, Total 0.6 mg/dL (0.2-1.2); Calc. Creatinine Clearance 0 mL/min (70-130); Calcium 9.5 mg/dL (7.8-10.44); Carbon Dioxide 25 mmol/L (22-29); Chloride 100 mmol/L (98-107); Estimated GFR 83; Globulin 4.1 g/dL (2.4-3.5); Glucose 110 mg/dL (70-105); Potassium 3.9 mmol/L (3.5-5.1); Protein, Total 8.3 g/dL (6.0-8.3); Sodium 135 mmol/L (136-145)
[2022-07-30] MEDS ORDERED: Promethazine 25 MG TAB ONE (15:00)
== END 2022-07-30 15:56 | disposition home or self-care (01) ==
LOC: ERS 13:17
DX: R11.2 Nausea with vomiting, unspecified (principal); E78.00 Pure hypercholesterolemia, unspecified; I10 Essential (primary) hypertension; F17.210 Nicotine dependence, cigarettes, uncomplicated
CPT/HCPCS: 36415; 80053; 83690; 84484; 85025; 93005; Q0169

== ENCOUNTER 2022-09-29 09:14 | Emergency (ER) | payer SELFPAY ==
[2022-09-29 11:13] LABS: #Basophils 0.1 thou/uL (0.0-0.2); #Eosinphils 0.1 thou/uL (0.0-0.7); #Neutrophils 4.5 thou/uL (1.40-6.50); %Basophils 1.5 % (0.0-1.0); %Eosinophils 0.7 % (0.0-10.0); %Lymphocytes 33.9 % (21.0-51.0); %Monocytes 11.6 % (0.0-10.0); %Neutrophils 52.4 % (42.0-75.0); Mean Corpuscular HGB CONC 31.4 g/dL (32.0-36.0); Mean Corpuscular Hemoglobin 29.2 pg (27.0-31.0); Mean Platelet Volume 7.4 fL (7.4-10.4); Platelet Count 316 10x3/uL (130-400); RBC Distribution Width 12.6 % (11.5-14.5); White Blood Cell (WBC) Count 8.6 10x3/uL (4.8-10.8)
[2022-09-29 11:21] LABS: ALT (SGPT) 24 U/L (8-55); AST (SGOT) 33 U/L (5-34); Albumin 3.8 g/dL (3.5-5.0); Alkaline Phosphatase 66 U/L (40-110); Anion Gap 14 mmol/L (10-20); BUN (Urea Nitrogen) 10 mg/dL (7.0-18.7); Bilirubin, Total 0.3 mg/dL (0.2-1.2); Calc. Creatinine Clearance 0 mL/min (70-130); Calcium 9.6 mg/dL (7.8-10.44); Carbon Dioxide 19 mmol/L (22-29); Chloride 107 mmol/L (98-107); Estimated GFR 98; Globulin 3.8 g/dL (2.4-3.5); Glucose 91 mg/dL (70-105); Potassium 3.6 mmol/L (3.5-5.1); Protein, Total 7.6 g/dL (6.0-8.3); Sodium 136 mmol/L (136-145)
[2022-09-29] MEDS ORDERED: Ketorolac Tromethamine 30 MG/ML VIAL ONE (11:24)
[2022-09-29] MEDS ORDERED: Lidocaine 1% PF 5 ML VIAL ONE (12:31)
== END 2022-09-29 13:40 | disposition home or self-care (01) ==
LOC: ERS 09:14
DX: N61.1 Abscess of the breast and nipple (principal); E78.00 Pure hypercholesterolemia, unspecified; I10 Essential (primary) hypertension; F17.210 Nicotine dependence, cigarettes, uncomplicated
CPT/HCPCS: 10060; 36415; 80053; 85025; 96372; J1885

== ENCOUNTER 2023-12-02 16:08 | Emergency (ER) | payer SELFPAY ==
[2023-12-02] MEDS ORDERED: Sucralfate 1 GM/10 ML UDCUP ONE (17:18)
[2023-12-02] MEDS ORDERED: Pantoprazole 40 MG VIAL ONE (17:18)
[2023-12-02] MEDS ORDERED: Sucralfate 1 GM TAB PO SCH (17:30)
[2023-12-02] MEDS ORDERED: Lidocaine 2% Viscous 10 mL, Alum & Magn 30 mL SSW SCH (17:30)
[2023-12-02 18:13] LABS: %Basophils 0.9 % (0.0-1.0); %Eosinophils 0.4 % (0.0-10.0); %Lymphocytes 41.7 % (21.0-51.0); %Monocytes 11.7 % (0.0-10.0); Hematocrit 47.3 % (36.0-47.0); Hemoglobin 15.9 g/dL (12.0-16.0); Mean Corpuscular HGB CONC 33.6 g/dL (32.0-36.0); Mean Corpuscular Hemoglobin 30.1 pg (27.0-31.0); Mean Corpuscular Volume 89.6 fL (78.0-98.0); Mean Platelet Volume 10.1 fL (7.4-10.4); Platelet Count 351 10x3/uL (130-400); RBC Distribution Width 13.8 % (11.5-14.5); Red Blood Cell (RBC) Count 5.28 mill/uL (4.20-5.40)
[2023-12-02 18:41] LABS: BHCG - Serum Negative (NEGATIVE); Pregs Control Background? CLEAR/WHITE (CLR/WHITE); Pregs Control Bar Appear? YES (CONTROL BAR)
[2023-12-02 18:43] LABS: ALT (SGPT) 34 U/L (8-55); AST (SGOT) 41 U/L (5-34); Alkaline Phosphatase 59 U/L (40-110); Anion Gap 15 mmol/L (10-20); BUN (Urea Nitrogen) 12 mg/dL (7.0-18.7); Bilirubin, Total 0.8 mg/dL (0.2-1.2); Calc. Creatinine Clearance 0 mL/min (70-130); Calcium 9.9 mg/dL (7.8-10.44); Carbon Dioxide 26 mmol/L (22-29); Chloride 102 mmol/L (98-107); Estimated GFR 83; Globulin 4.1 g/dL (2.4-3.5); Glucose 109 mg/dL (70-105); Lipase 196 U/L (8-78); Potassium 3.6 mmol/L (3.5-5.1); Protein, Total 8.1 g/dL (6.0-8.3); Sodium 139 mmol/L (136-145)
[2023-12-02 19:03] LABS: Bacteria/HPF None Seen HPF (None Seen); Bilirubin Negative (Negative); Blood, Urine 2+ (Negative); CAUTI Indications for Culture Dysuria,urgency,freq; Clarity Clear (Clear); Glucose, Urine (Dipstick) Normal (Negative); Ketone, Urine 10 mg/dL (Negative); Leukocyte Negative Leu/uL (Negative); Nitrite Negative (Negative); Protein, Urine (Dipstick) 300 mg/dL (Neg-Trace); Specific Gravity, Urine 1.029 (1.002-1.036); Squamous Epithelial 0-3 HPF (0-3); pH, Urine 6.5 (5.0-9.0)
[2023-12-02 19:06] LABS: Urine Culture Reflex No No
== END 2023-12-02 19:43 | disposition home or self-care (01) ==
LOC: ERS 16:08
DX: T67.5XXA Heat exhaustion, unspecified, initial encounter (principal); E86.0 Dehydration; I10 Essential (primary) hypertension; F17.210 Nicotine dependence, cigarettes, uncomplicated; X30.XXXA Exposure to excessive natural heat, initial encounter; Y93.89 Activity, other specified; Y92.039 Unspecified place in apartment as the place of occurrence of the external cause
CPT/HCPCS: 80053; 81001; 83605; 83690; 84703; 85025; 93005; C9113

== ENCOUNTER 2024-05-23 12:03 | Emergency (ER) | payer SELFPAY ==
[2024-05-23 13:10] LABS: #Basophils 0.06 10x3/uL (0.0-0.2); #Eosinophils Less than 0.03 10x3/uL (0.0-0.7); %Basophils 0.7 % (0.0-1.0); %Eosinophils 0.1 % (0.0-10.0); %Lymphocytes 17.9 % (21.0-51.0); %Monocytes 5.9 % (0.0-10.0); %Neutrophils 75.2 % (42.0-75.0); Hematocrit 42.1 % (36.0-47.0); Hemoglobin 13.8 g/dL (12.0-16.0); Mean Corpuscular HGB CONC 32.8 g/dL (32.0-36.0); Mean Corpuscular Hemoglobin 29.3 pg (27.0-31.0); Mean Corpuscular Volume 89.4 fL (78.0-98.0); Mean Platelet Volume 9.9 fL (7.4-10.4); Platelet Count 349 10x3/uL (130-400); RBC Distribution Width 13.7 % (11.5-14.5); Red Blood Cell (RBC) Count 4.71 mill/uL (4.20-5.40)
[2024-05-23 13:26] LABS: BHCG - Serum Negative (NEGATIVE); Pregs Control Background? CLEAR/WHITE (CLR/WHITE); Pregs Control Bar Appear? YES (CONTROL BAR)
[2024-05-23 13:33] LABS: ALT (SGPT) 29 U/L (8-55); AST (SGOT) 42 U/L (5-34); Alkaline Phosphatase 82 U/L (40-110); Anion Gap 16 mmol/L (10-20); BUN (Urea Nitrogen) 9 mg/dL (7.0-18.7); Bilirubin, Total 0.3 mg/dL (0.2-1.2); Calc. Creatinine Clearance 0 mL/min (70-130); Calcium 9.7 mg/dL (7.8-10.44); Carbon Dioxide 24 mmol/L (22-29); Chloride 105 mmol/L (98-107); Estimated GFR 96; Glucose 179 mg/dL (70-105); Lipase 18 U/L (8-78); Potassium 3.5 mmol/L (3.5-5.1); Sodium 141 mmol/L (136-145)
[2024-05-23 14:13] LABS: Bacteria/HPF 1+ HPF (None Seen); Bilirubin Negative (Negative); Blood, Urine 1+ (Negative); CAUTI Indications for Culture Pelvic or flank pain; Clarity Clear (Clear); Glucose, Urine (Dipstick) 50 mg/dL (Negative); Ketone, Urine 40 mg/dL (Negative); Leukocyte 75 Leu/uL (Negative); Nitrite Negative (Negative); Protein, Urine (Dipstick) 600 mg/dL (Neg-Trace); Specific Gravity, Urine 1.026 (1.002-1.036); Squamous Epithelial 0-3 HPF (0-3); Urobilinogen Normal mg/dL (Less than 2)
[2024-05-23 14:15] LABS: Urine Culture Reflex No No
[2024-05-23] MEDS ORDERED: Promethazine HCl 25 MG/ML VIAL ONE (16:10)
[2024-05-23] MEDS ORDERED: Ketorolac Tromethamine 30 MG (1 mL) VIAL ONE (16:10)
[2024-05-23] MEDS ORDERED: Dicyclomine 20 MG/2 ML VIAL ONE (16:10)
[2024-05-23 16:12] LABS: Magnesium 1.6 mg/dL (1.6-2.6)
== END 2024-05-23 17:24 | disposition home or self-care (01) ==
LOC: ERS 12:03
DX: K52.9 Noninfective gastroenteritis and colitis, unspecified (principal); R16.0 Hepatomegaly, not elsewhere classified; R80.9 Proteinuria, unspecified; I10 Essential (primary) hypertension; F17.210 Nicotine dependence, cigarettes, uncomplicated
CPT/HCPCS: 36415; 71045; 74177; 80053; 81001; 83690; 83735; 84703; 85025; 96365; 96372; 96375; J1885; J2550

== ENCOUNTER 2025-01-11 11:46 | Outpatient (CLI) | payer OTHER | END 2025-01-11 11:47 | disposition home or self-care (01) | LOC: RAD 11:46 | PROVIDERS: ATTEND Internal Medicine Hematology & Oncology | DX: C34.11 Malignant neoplasm of upper lobe, right bronchus or lung (principal) | CPT/HCPCS: 36598; J1642; Q9967 ==